=== PATIENT | male | born 1945 | race Caucasian/White ===

== ENCOUNTER 2017-07-19 05:36 | Day surgery (SDC) | payer MEDICARE ==
[2017-07-17 10:45] VITALS: BMI 30.4
[2017-07-19] MEDS ORDERED: Fentanyl 100 MCG/2 ML VIAL ONE (08:05)
--- NOTE | 2017-07-19 09:34 | DIS ---
DATE OF ADMISSION: 07/19/2017 DATE OF DISCHARGE: 07/19/2017 DATE OF PROCEDURE: 07/19/2017 ADMITTING DIAGNOSIS: Atrial fibrillation. It was planned to undergo transesophageal echocardiogram as well as the electrocardioversion of his a trial fibrillation. His other diagnoses include peripheral vascular disease, dyslipidemia, hypertens ion. He also has carotid artery stenosis, which has been monitored and has macular degeneration. DISCHARGE DIAGNOSES: Atrial fibrillation, this has been converted to sinus rhythm. PROCEDURES IN HOSPITAL: Include, 1. Transesophageal echocardiogram. 2. Electrocardioversion of atrial fibrillation to sinus rhythm. DISCHARGE MEDICATIONS: Will be the same as his admitting medications. These include Eliquis 5 mg tw ice a day, calcium tablets 500 mg a day, vitamin D3, Multaq 400 mg b.i.d., felodipine ER 5 mg q.24 ho urs, glucosamine chondroitin sulfate, lisinopril 20 mg once a day, metoprolol 50 mg daily, simvastati n 40 mg daily, turmeric and vitamin C. FOLLOWUP: He will follow up with me in the next 3-4 weeks in the office. He will continue his [facility] followups with his primary care physician, Dr. Oxana Aguilar. PROCEDURE IN HOSPITAL: Included a transesophageal echocardiogram as well as the electrocardioversion of atrial fibrillation. He tolerated both very well. The transesophageal echocardiogram indicated no evidence of left atrial or left atrial appendage thrombus. He did have smoke formation in left at rium. His left atrium was dilated at 4.5 to 5.3 cm in diameter. He had moderate mitral valve regurg itation, mild tricuspid valve regurgitation as well as trace aortic valve regurgitation, aortic valve sclerosis was noted. The left ventricular systolic function appeared to be slightly decreased with ejection fraction of 45%-50%. There were no difficulties or complications encountered during either one of his procedures, either transesophageal echocardiogram or the electrocardioversion, which was s uccessful at one attempt at 250 joules. Once he is stable, he will be discharged to home and I will see him back in the office in the next 3-4 weeks.
--- NOTE | 2017-07-19 13:30 | ECHO ---
TRANSESOPHAGEAL ECHOCARDIOGRAM REPORT: INDICATION FOR PROCEDURE: A 72-year-old patient with atrial fibrillation who was advised to undergo electrical cardioversion. He has been placed on Multaq for approximately a month as well as Eliquis. He was advised to undergo a transesophageal echocardiogram as well as an electrocardioversion of the atrial fibrillation. OVERALL DIAGNOSES: atrial fibrillation and for the TOMMIE and planned cardioversion. His other diagnoses included peripher al vascular disease, dyslipidemia, and hypertension. IMPRESSION: 1. Mild decrease in left ventricular systolic function, ejection fraction is estimated at 45-50%. 2. Left atrial dilatation 4.5-5.3 cm in diameter. 3. Moderate mitral valve regurgitation. 4. Mild tricuspid valve regurgitation. 5. Trace aortic valve regurgitation. 6. Mild aortic valve calcifications. 7. "Smoke" noted in the left atrium. 8. No evidence of left atrial or left atrial appendage thrombus. There were no difficulties or complications encountered. POS: CHAD
--- NOTE | 2017-07-19 13:33 | OP ---
ELECTROCARDIOVERSION: PROCEDURE: The patient was taken to the lab where he underwent short-acting anesthesia with propofol. The trans esophageal probe was passed. This indicated no evidence of left atrial or left atrial appendage thro mbus. He did have smoke formation of the left atrium and does have left atrial dilatation. After th ere was determined there was no left atrial appendage thrombus or left atrial thrombus, using one att empt at 250 joules, the patient was successfully converted from atrial fibrillation back to normal si nus rhythm. There were no difficulties or complications encountered.
[2017-07-19] MEDS ORDERED: PROPOFOL 200 MG/20 ML VIAL ONE (13:49)
[2017-07-19] MEDS ORDERED: Lidocaine 1% PF 5 ML VIAL ONE (13:49)
--- NOTE | 2017-07-19 22:15 | EKG ---
Test Reason : PREOP Blood Pressure : / mmHG Vent. Rate : 076 BPM Atrial Rate : 095 BPM P-R Int : 000 ms QRS Dur : 092 ms QT Int : 460 ms P-R-T Axes : 000 015 056 degrees QTc Int : 517 ms Atrial fibrillation with premature ventricular or aberrantly conducted complexes Prolonged QT Abnormal ECG No previous ECGs available Confirmed by DR. Jenn ALCANTAR MD ([id number]) on 07/19/2017 10:14:47 PM Referred By: HUBER Confirmed By:DR. Jenn ALCANTAR MD
== END 2017-07-19 11:00 | disposition home or self-care (01) ==
LOC: CCL 05:36
PROVIDERS: ATTEND Internal Medicine Cardiovascular Disease
PROC: 5A2204Z Restoration of Cardiac Rhythm, Single (ICD-10-PCS; principal; 2017-07-19)
DX: I48.0 Paroxysmal atrial fibrillation (principal); I73.9 Peripheral vascular disease, unspecified; I10 Essential (primary) hypertension; E78.5 Hyperlipidemia, unspecified
CPT/HCPCS: 92960; 93005; 93010; 93312; J2001; J2704; J3010

== ENCOUNTER 2018-06-05 09:13 | Outpatient (CLI) | payer MEDICARE ==
--- NOTE | 2018-06-05 10:27 | CT ---
CT ANGIOGRAM NECK: 06/05/2018 COMPARISON: 12/07/2014. HISTORY: Carotid arterial disease, abnormal carotid arterial Doppler ultrasound TECHNIQUE: Axial CT imaging at 2 mm intervals from thoracic inlet through skull base with IV contrast using a CT angiogram protocol. Coronal and sagittal 3-D reformatted imaging obtained. FINDINGS: The imaged brain parenchyma is grossly unremarkable. The retroantral and parapharyngeal fat is clear bilaterally. The parotid, submandibular glands unremarkable. Tonsillar pillars, epiglottis and preepiglottic fat, hyoid bone, thyroid cartilage, cricoid cartilage, and thyroid gland unremarkable. Imaged lung apices demonstrate no acute findings. The origin of the innominate artery, left common carotid artery, and left subclavian artery demonstra te no hemodynamically significant stenosis. There is atherosclerotic plaque at the origin of the left vertebral artery with at least moderate stable stenosis. The left vertebral artery originates direct ly from the aortic arch. 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 The right vertebral artery is dominant. Secondary to calcified plaque there is mild/moderate stenosis at origin of right vertebral artery. There is moderate/severe stenosis at the origin of the right subclavian artery on the basis of partia lly calcified plaque. Left common carotid artery origin is unremarkable. There is tortuosity of the left and right common c arotid arteries, particularly the proximal right CCA. There is multifocal calcified plaque at the distal CCA bilaterally extending into the proximal ICA an d ECA. On the basis of NASCET criteria, there is stenosis at the origin of the left internal carotid artery measuring approximately 25%, stable when compared to the prior examination. There is atherosclerotic plaque involving the cavernous segment of the left internal carotid artery. There is extensive calcified plaque at the origin of the right internal carotid artery. Approximately 1.3 cm from the origin of the right internal carotid artery there is a focal area of stenosis measur ing approximately 60% which is slightly worsened when compared to the prior study performed in 2014. No lymphadenopathy is noted within the neck There is multilevel degenerative change involving the cervical spine most prominent at the atlantoaxi al interspace and involving the facet joints on the right at C3-4 and C4-5. No worrisome lytic or mirta stic bone lesion. IMPRESSION: 1. Focal area of moderate stenosis of proximal right internal carotid artery as above. 2. No hemodynamically significant stenosis on the basis of NASCET criteria involving the left business development intern al carotid artery or either common carotid artery 3. Focal stenosis at origin of the right vertebral artery. Right vertebral artery is dominant and ot herwise unremarkable. 4. 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 Left vertebral artery en ds in PICA. Transcribed Date/Time: 06/05/2018 10:39 AM
== END 2018-06-05 09:14 | disposition home or self-care (01) ==
LOC: BICCT 09:13
PROVIDERS: ATTEND Internal Medicine Cardiovascular Disease
DX: I65.23 Occlusion and stenosis of bilateral carotid arteries (principal)
CPT/HCPCS: 70498; 82565

== ENCOUNTER 2022-05-03 09:48 | Outpatient (CLI) | payer MEDICARE ==
[2022-05-03] MEDS ORDERED: Iopamidol-370 76% 500 ML 1 ML ONE (17:51)
== END 2022-05-03 09:49 | disposition home or self-care (01) ==
LOC: BICCT 09:48
PROVIDERS: ATTEND Internal Medicine Cardiovascular Disease
DX: I65.21 Occlusion and stenosis of right carotid artery (principal)
CPT/HCPCS: 70498; 82565; Q9967

== ENCOUNTER 2023-01-03 08:48 | Day surgery (SDC) | payer MEDICARE ==
[2023-01-02 11:06] VITALS: BMI 28.1
[2023-01-03] MEDS ORDERED: Glycopyrrolate 0.2 MG/ML 5 ML SYRINGE ONE ×2 (10:47→11:05)
[2023-01-03] MEDS ORDERED: Midazolam HCl 2 mg/2 ml Vial ONE (10:47)
[2023-01-03] MEDS ORDERED: Ketamine In 0.9 % NaCl 50 MG/5 ML SYRINGE ONE (10:48)
[2023-01-03] MEDS ORDERED: PROPOFOL 20 ML ONE (10:55)
[2023-01-03] MEDS ORDERED: PHENYLEPHRINE-NS 100 MCG/ML 10 ML SYRINGE ONE ×2 (10:58→11:05)
[2023-01-03] MEDS ORDERED: ePHEDrine Sulfate 50 MG/10 ML VIAL ONE (10:58)
[2023-01-03] MEDS ORDERED: PROPOFOL 200 MG/20 ML VIAL ONE (11:05)
== END 2023-01-03 13:15 | disposition home or self-care (01) ==
LOC: SDC 08:48
PROVIDERS: ATTEND Internal Medicine Cardiovascular Disease
PROC: 5A2204Z Restoration of Cardiac Rhythm, Single (ICD-10-PCS; principal; 2023-01-03)
DX: I48.0 Paroxysmal atrial fibrillation (principal); I08.3 Combined rheumatic disorders of mitral, aortic and tricuspid valves; I73.9 Peripheral vascular disease, unspecified; I11.0 Hypertensive heart disease with heart failure; I50.22 Chronic systolic (congestive) heart failure; I65.23 Occlusion and stenosis of bilateral carotid arteries; E78.2 Mixed hyperlipidemia; Z87.891 Personal history of nicotine dependence; E78.5 Hyperlipidemia, unspecified; I25.10 Atherosclerotic heart disease of native coronary artery without angina pectoris; Z90.89 Acquired absence of other organs; Z79.899 Other long term (current) drug therapy; Z79.01 Long term (current) use of anticoagulants
CPT/HCPCS: 92960; 93005; 93010; 93312; J2250; J2704; J3490